=== PATIENT | female | born 1940 | race Caucasian/White ===

== ENCOUNTER 2022-04-04 06:28 | Day surgery (SDC) | payer MEDICARE, OTHER ==
[2022-03-28 09:32] LABS: BASOPHILS % (AUTO) 0.4 % (0-1); EOSINOPHILS # (AUTO) 0.3 X10'3 (0-0.9); EOSINOPHILS % (AUTO) 2.9 % (0-6); HEMATOCRIT 38.2 % (35.0-45.0); HEMOGLOBIN 12.4 g/dl (12.0-16.0); LYMPHOCYTES # (AUTO) 1.4 X10'3 (1.1-4.8); LYMPHOCYTES % (AUTO) 15.1 % (21-51); MEAN CORPUSCULAR HEMOGLOBIN 25.7 PG (27.0-31.0); MEAN CORPUSCULAR HGB CONC 32.4 g/dL (33.0-36.5); MEAN CORPUSCULAR VOLUME 79.4 FL (78-98); MONOCYTES # (AUTO) 0.6 X10'3 (0-0.9); MONOCYTES % (AUTO) 6.5 % (2-12); NEUTROPHILS # (AUTO) 6.8 X10'3 (1.8-7.7); NEUTROPHILS % (AUTO) 75.1 % (42-75); PLATELET COUNT 234 X10'3 (140-440); RED BLOOD COUNT 4.82 X10'6 (4.20-5.60); RED CELL DISTRIBUTION WIDTH 16.3 % (11.5-14.5)
[2022-03-28 09:38] LABS: APTT 27 SECONDS (22-32)
[2022-03-28 09:40] LABS: ALANINE AMINOTRANSFERASE 14 U/L (12-78); ALBUMIN 3.3 G/DL (3.4-5.0); ALBUMIN/GLOBULIN RATIO 0.9 (1.1-1.5); ALKALINE PHOSPHATASE 100 IU/L (46-116); ANION GAP 6 (8-16); ASPARTATE AMINO TRANSFERASE 19 U/L (10-37); BILIRUBIN,TOTAL 0.4 MG/DL (0.1-1.0); BLOOD UREA NITROGEN 18 MG/DL (7-18); BUN/CREATININE RATIO 17.3 (6.6-38.0); CHLORIDE 103 MMOL/L (99-107); CREATININE 1.04 MG/DL (0.40-0.90); GLUCOSE 124 MG/DL (70-104); POTASSIUM 4.3 MMOL/L (3.5-5.1); SODIUM 137 MMOL/L (135-145); TOTAL CARBON DIOXIDE 27.8 MMOL/L (24-32); eGFR 51 ML/MIN
[~2022-04-04] VITALS: Ht 160 cm; Wt 114.8 kg
[2022-04-04] VITALS (11 sets, daily range): BP systolic 127–155; BP diastolic 36–92
[2022-04-04] MEDS ORDERED: normal saline 1,000 ML IV SCH (06:45)
[2022-04-04] MEDS ORDERED: diphenhydrAMINE 25mg capsule PO PRN (06:45)
[2022-04-04] MEDS ORDERED: nitroGLYCERIN 0.4mg SUBLingual tab SL PRN (06:45)
[2022-04-04] MEDS ORDERED: LORazepam 0.5 MG tablet PO PRN (06:45)
[2022-04-04] MEDS ORDERED: glucagon, human recombinant 1mg kit SUBCUT PRN (06:50)
[2022-04-04] MEDS ORDERED: insulin Lispro (HumaLOG) vial - multi-dose SQ SCH (06:50)
[2022-04-04] MEDS ORDERED: DEXTROSE 15 GM of carb/4 tabs (each vial/BOTTLE has 4 tablets) PO PRN ×2 (06:50)
[2022-04-04] MEDS ORDERED: methylPREDNISolone sod succ 125mg/2ml vial IV ONE (06:50)
[2022-04-04] MEDS ORDERED: insulin regular, human U-100 3ml vial - multi-dose SQ SCH (06:50)
[2022-04-04] MEDS ORDERED: dextrose 50%-water 50ml dispensing syringe IV PRN ×2 (06:50)
[2022-04-04] MEDS ORDERED: LISI10TA27 (06:51)
[2022-04-04] MEDS ORDERED: ATOR40TA72 (06:51)
[2022-04-04] MEDS ORDERED: DULA0.75 SQ (06:51)
[2022-04-04] MEDS ORDERED: PRED20TA PO (06:57)
[2022-04-04] MEDS ORDERED: midazolam 1 mg/ML 2ml injection ONE ×2 (08:41→09:50)
[2022-04-04] MEDS ORDERED: LIDOcaine 1% 30ml preserv. free vial ONE (08:42)
[2022-04-04] MEDS ORDERED: iohexol 300mg/ml 100ml inj. ONE (08:42)
[2022-04-04] MEDS ORDERED: FENTANYL CITRATE/PF 50 MCG/1 ML VIAL ONE ×3 (08:42→09:50)
[2022-04-04] MEDS ORDERED: iohexol 350 MG/ML 50ML vial IV ONE (08:42)
[2022-04-04] MEDS ORDERED: atropine 0.1mg/ml 10ml syringe ONE (09:51)
[2022-04-04] MEDS ORDERED: hydrALAZINE 20mg/ml inj. IV ONE (10:02)
[2022-04-04] MEDS ORDERED: normal saline 1000ml 1,000 ML IV SCH (10:35)
[2022-04-04] MEDS ORDERED: OXAZEpam 15mg capsule PO PRN (10:35)
[2022-04-04] MEDS ORDERED: proCHLORperazine 10 MG/2 ml inj IV PRN (10:35)
[2022-04-04] MEDS ORDERED: ondansetron/PF 4mg/2ml inj IV PRN (10:35)
[2022-04-04] MEDS ORDERED: HYDROcodone/acetaminophen 10/325mg tab PO PRN (10:35)
[2022-04-04] MEDS ORDERED: HYDROcodone/acetaminophen 5mg/325mg tablet PO PRN (10:35)
[2022-04-04] MEDS ORDERED: insulin glargine (Lantus) pen - multi-dose SQ SCH (21:00)
== END 2022-04-04 16:05 | disposition home or self-care (01) ==
LOC: SSTAY O 06:28
PROVIDERS: ATTEND Internal Medicine Cardiovascular Disease
DX: R94.39 Abnormal result of other cardiovascular function study (principal); I25.10 Atherosclerotic heart disease of native coronary artery without angina pectoris; I10 Essential (primary) hypertension; E78.5 Hyperlipidemia, unspecified; E11.9 Type 2 diabetes mellitus without complications; Z79.01 Long term (current) use of anticoagulants; Z79.899 Other long term (current) drug therapy; Z87.891 Personal history of nicotine dependence
CPT/HCPCS: 36415; 71046; 80053; 82948; 85025; 85610; 85730; 93005; 93458; 99152; C1760; C1769; J0360; J1644; J1815; J2250; J2930; J3010; J3490; J7030; Q0163; Q9967; 99153; A6258; J0461